=== PATIENT | male | born 1980 | race Caucasian/White ===

== ENCOUNTER 2016-05-22 21:09 | Emergency (ER) | payer OTHER ==
[~2016-05-22] VITALS: Ht 180.3 cm; Wt 142.0 kg
[~2016-05-22 21:09] MED LIST: AMOXICILLIN500 M1 PO
[2016-05-22 21:15] VITALS: BP 136/93
--- NOTE | 2016-05-22 21:30 | NUR ---
Patient ambulated to bed 03.
--- NOTE | 2016-05-22 21:37 | NUR ---
35 Y/O HERE C/O CONSTANT/ NONSTOP BLEEDING SINCE TOOTH EXTRACTION TODAY AT DENTIST OFFICE. BLEEDING PRESENT AT THE MOMENT. ER MD AWARED OF IT.
--- NOTE | 2016-05-22 21:40 | NUR ---
Dr. Villegas evaluating patient at bedside.
[2016-05-22] MEDS ORDERED: TRANEXAMIC ACID 1,000 MG in NACL 0.9% 50 ML IV STA (22:16)
[2016-05-22 22:27] VITALS: BP 129/89
--- NOTE | 2016-05-22 22:27 | NUR ---
Note wade in EDM - 05/22/16 at 2259 by GREGG 35 Y/O HERE C/O CONSTANT/ NONSTOP BLEEDING SINCE TOOTH EXTRACTION TODAY AT DENTIST OFFICE. BLEEDING PRESENT AT THE MOMENT. YUNG ALLRED AWARED OF IT.
--- NOTE | 2016-05-22 22:27 | NUR ---
Patient discharged with v/s stable. Written and verbal after care instructions given and explained. Patient verbalized understanding. Ambulatory with steady gait. All questions addressed prior to discharge. Advised to follow up with DENTIST TOMORROW OR RETURN TO ER IF BLEEDING CONTINUES. NO S/S OF BLEEDING OR DISTRESS ON D/C.
== END 2016-05-22 22:27 | disposition home or self-care (01) ==
LOC: MED 21:09
DX: K91.840 Postprocedural hemorrhage of a digestive system organ or structure following a digestive system procedure (principal); I10 Essential (primary) hypertension
CPT/HCPCS: 99283; J3490

== ENCOUNTER 2017-03-10 12:55 | Emergency (ER) | payer OTHER ==
[~2017-03-10] VITALS: Ht 182.9 cm; Wt 145.1 kg
[~2017-03-10 12:55] MED LIST changes: +AMOX500C25 PO; -AMOXICILLIN500 M1 PO
[2017-03-10 13:19] VITALS: BP 117/74
[2017-03-10] MEDS: HYDROcodone/APAP 5/325 MG 1 TAB TAB PO ONE (15:39)
[2017-03-10] MEDS: IBUPROFEN 600 MG TAB PO ONE (15:39)
[2017-03-10 16:53] VITALS: BP 132/79
== END 2017-03-10 16:53 | disposition home or self-care (01) ==
LOC: MED 12:55
DX: M54.5 Low back pain (principal); I10 Essential (primary) hypertension; V43.52XA Car driver injured in collision with other type car in traffic accident, initial encounter; Y93.I9 Activity, other involving external motion; Y92.488 Other paved roadways as the place of occurrence of the external cause; Y99.8 Other external cause status
CPT/HCPCS: 71020; 72040; 72110; 99284

== ENCOUNTER 2018-01-27 23:07 | Emergency (ER) | payer OTHER ==
[~2018-01-27] VITALS: Ht 180.3 cm; Wt 155.2 kg
[2018-01-27 23:10] VITALS: BP 150/97
[2018-01-28] MEDS: ACETAMINOPHEN EXTRA STRENGTH 500 MG TAB PO ONE (03:30)
[2018-01-28] MEDS: AMOXICILLIN 500 MG CAP PO ONE (03:31)
[2018-01-28] MEDS: predniSONE 20 MG TAB PO ONE (03:32)
[2018-01-28 03:34] LABS: BARBITURATE, URINE NEG. ng/ml (NEG <=200); BENZODIAZEPINE, URINE NEG. ng/mL (NEG <=200); CANNABINOID, URINE NEG. ng/mL (NEG <=50); COCAINE, URINE NEG. ng/mL (NEG <=300); OPIATE, URINE NEG. ng/mL (NEG <=2000); PHENCYCLIDINE SCREEN,URINE NEG. ng/mL (NEG <=25)
[2018-01-28 04:45] VITALS: BP 150/97
== END 2018-01-28 04:45 | disposition home or self-care (01) ==
LOC: MED 23:07
DX: R10.30 Lower abdominal pain, unspecified (principal); Z79.899 Other long term (current) drug therapy
CPT/HCPCS: 80305; 81002; 99284; J7512

== ENCOUNTER 2018-03-02 23:38 | Emergency (ER) | payer OTHER ==
[~2018-03-02] VITALS: Ht 180.3 cm; Wt 154.2 kg
[2018-03-02 23:48] VITALS: BP 168/122
--- NOTE | 2018-03-02 23:51 | NUR ---
PT TAKEN TO BED 2
--- NOTE | 2018-03-02 23:54 | NUR ---
37 Y/O M PRESENTS TO THE ED W/C/O SORE THROAT X 2 WEEKS. PT HAS BEEN SEEN FOR THIS ALREADY AND GIVEN ABX BUT IT IS NOT HELPING PER PT. PT DENIES N/V/D; SKIN IS INTACT, PINK/WARM/DRY; AAOX4, PERRL, WITH EVEN AND STEADY GAIT; LUNGS CLEAR BL, BREATHING UNLABORED; HR EVEN AND REGULAR, BL PERIPHERAL PULSES PRESENT; BS ACTIVE X4, NO TENDERNESS TO PALPATION, NO HEPATOSPLENOMEGALLY PALPATED, RESONANT TO PERCUSSION; PT DENIES ANY FEVER, CP, SOB, OR COUGH AT THIS TIME; PT STATES 7/10 PAIN AT THIS TIME; VSS; PATIENT POSITIONED FOR COMFORT; HOB ELEVATED; BEDRAILS UP X2; BED DOWN.
[2018-03-03] MEDS ORDERED: DEXAMETHASONE 10 MG/ML VIAL PO ONE (01:10)
[2018-03-03 01:35] VITALS: BP 137/96
--- NOTE | 2018-03-03 01:35 | NUR ---
Patient discharged with v/s stable. Written and verbal after care instructions given and explained. Patient alert, oriented and verbalized understanding of instructions. Ambulatory with steady gait. All questions addressed prior to discharge. ID band removed. Patient advised to follow up with PMD. Rx of Tylenol and Mylanta given. Patient educated on indication of medication including possible reaction and side effects. Opportunity to ask questions provided and answered.
== END 2018-03-03 01:35 | disposition home or self-care (01) ==
LOC: MED 23:38
DX: J02.9 Acute pharyngitis, unspecified (principal); I10 Essential (primary) hypertension; Z79.2 Long term (current) use of antibiotics
CPT/HCPCS: 36415; 87081; 87804; 99283; J1100

== ENCOUNTER 2018-04-25 05:45 | Emergency (ER) | payer OTHER ==
[~2018-04-25] VITALS: Ht 180.3 cm; Wt 147.0 kg
[2018-04-25 05:50] VITALS: BP 139/90
[2018-04-25] MEDS: NACL 0.9% 1,000 ML IV ONE (06:28)
[2018-04-25 06:37] LABS: BASOPHILS # (AUTO) 0.1 K/uL (0.00-0.22); BASOPHILS % (AUTO) 0.4 % (0.0-2.0); EOSINOPHILS # (AUTO) 0.2 K/uL (0-0.4); EOSINOPHILS % (AUTO) 1.2 % (0.0-4.0); HEMATOCRIT 51.6 % (36-52); HEMOGLOBIN 17.2 g/dL (12.0-18.0); LYMPHOCYTES # (AUTO) 2.5 K/uL (2.0-11.5); LYMPHOCYTES % (AUTO) 18.5 % (20.5-51.1); MEAN CORPUSCULAR HEMOGLOBIN 30 pg (27-31); MEAN CORPUSCULAR HGB CONC 33 g/dL (33-37); MEAN CORPUSCULAR VOLUME 90.2 fL (80-94); MONOCYTES # (AUTO) 0.9 K/uL (0.8-1.0); MONOCYTES % (AUTO) 6.4 % (1.7-9.3); NEUTROPHILS # (AUTO) 9.7 K/uL (1.8-7.7); NEUTROPHILS % (AUTO) 73.5 % (42.2-75.2); PLATELET COUNT (AUTO) 297 K/uL (140-450); RED BLOOD CELL COUNT(AUTO) 5.72 MIL/uL (4.20-6.10); RED CELL DISTRIBUTION WIDTH 13.2 % (11.6-13.7); WHITE BLOOD COUNT (AUTO) 13.3 K/uL (4.8-10.8)
[2018-04-25 06:42] LABS: APPEARANCE,URINE CLEAR (CLEAR); BILIRUBIN,URINE NEGATIVE (NEGATIVE); BLOOD, URINE NEGATIVE (NEGATIVE); COLOR,URINE YELLOW (YELLOW); LEUKOCYTE ESTERASE ,URINE NEGATIVE (NEGATIVE); NITRITE, URINE NEGATIVE (NEGATIVE); UGLUCOSE NEGATIVE (NEGATIVE)
[2018-04-25 07:05] LABS: RBC,URINE NONE SEEN /HPF (0-5); WBC,URINE 0-5 (RARE) /HPF (0-5)
[2018-04-25 07:07] LABS: ALBUMIN 4.1 g/dL (3.4-5.0); ANION GAP 13.8 (8-16); CARBON DIOXIDE 30.6 mmol/L (21-32); CREATININE 1.2 mg/dL (0.7-1.3); POTASSIUM 3.4 mmol/L (3.5-5.1); TOTAL BILIRUBIN 0.4 mg/dL (0.0-1.0)
[2018-04-25 07:52] VITALS: BP 139/90
== END 2018-04-25 07:52 | disposition home or self-care (01) ==
LOC: MED 05:45
DX: R42 Dizziness and giddiness (principal); R19.7 Diarrhea, unspecified; R50.9 Fever, unspecified; R11.0 Nausea; R05 Cough; I10 Essential (primary) hypertension; Z79.2 Long term (current) use of antibiotics
CPT/HCPCS: 36415; 71045; 80053; 81001; 85025; 87804; 96360; 99284; J7030

== ENCOUNTER 2018-05-19 19:45 | Emergency (ER) | payer OTHER ==
[~2018-05-19] VITALS: Ht 180.3 cm; Wt 149.7 kg
[2018-05-19 20:09] VITALS: BP 156/108
--- NOTE | 2018-05-19 20:10 | NUR ---
TO [facility] , A/W BED, AMBULATORY, ERMD NOTED
--- NOTE | 2018-05-19 20:16 | NUR ---
PATIENT AMBULATED TO ER BED 6.
--- NOTE | 2018-05-19 20:20 | NUR ---
37/M PRESENTS TO ED, C/O HIGH BLOOD PRESSURE (HIGHEST 178/114), X2 DAYS. BP 143/87, HR 91 AT THIS TIME. PT REPORTS HEADACHE AND RESOLVED STIFF NECK AFTER WAKING UP IN THE MORNING. PT DENIES CP, SOB, N/V. PT AOX4, GCS 15, RR EVEN AND UNLABORED. HX HTN, DM, ANXIETY RX NORVASC, METFORMIN, DEPAKOTE, LEXAPRO
--- NOTE | 2018-05-19 20:30 | NUR ---
EKG PERFORMED AT BEDSIDE
--- NOTE | 2018-05-19 21:15 | NUR ---
DR MINOR AT BEDSIDE
[2018-05-19 21:34] VITALS: BP 123/81
== END 2018-05-19 21:31 | disposition home or self-care (01) ==
LOC: MED 19:45
DX: I10 Essential (primary) hypertension (principal); M54.2 Cervicalgia; E11.9 Type 2 diabetes mellitus without complications; K21.9 Gastro-esophageal reflux disease without esophagitis; F41.9 Anxiety disorder, unspecified; Z79.2 Long term (current) use of antibiotics
CPT/HCPCS: 93005; 99283

== ENCOUNTER 2019-07-04 11:53 | Emergency (ER) | payer OTHER ==
[~2019-07-04] VITALS: Ht 180.3 cm; Wt 144.2 kg
[2019-07-04 12:07] VITALS: BP 130/99
--- NOTE | 2019-07-04 12:59 | NUR ---
pt ambulated to bed 07
--- NOTE | 2019-07-04 13:10 | NUR ---
c/o Generalized abdominal pain 7/10 in severity, more severe in RUQ. Denies N/V. Last BM today, small amount. admits to diarrhea yesterday x 2 episodes. abdomen soft, tender to touch in ruq. pt alert and awake. vs stable. ambulatory. pt reports taking prilosec with no relief Med hx: sleep apnea, DM, HTN, Anxiety and Depression
--- NOTE | 2019-07-04 13:41 | NUR ---
us at bedside
--- NOTE | 2019-07-04 14:00 | NUR ---
lab at bedside
[2019-07-04 14:17] LABS: BASOPHILS # (AUTO) 0.1 K/uL (0.00-0.22); BASOPHILS % (AUTO) 0.6 % (0.0-2.0); EOSINOPHILS % (AUTO) 0.3 % (0.0-4.0); HEMATOCRIT 50.1 % (36-52); HEMOGLOBIN 16.7 g/dL (12.0-18.0); LYMPHOCYTES # (AUTO) 1.7 K/uL (2.0-11.5); LYMPHOCYTES % (AUTO) 18.8 % (20.5-51.1); MEAN CORPUSCULAR HEMOGLOBIN 31 pg (27-31); MEAN CORPUSCULAR HGB CONC 33 g/dL (33-37); MEAN CORPUSCULAR VOLUME 91.7 fL (80-94); MONOCYTES # (AUTO) 0.6 K/uL (0.8-1.0); MONOCYTES % (AUTO) 6.2 % (1.7-9.3); NEUTROPHILS # (AUTO) 6.9 K/uL (1.8-7.7); NEUTROPHILS % (AUTO) 74.1 % (42.2-75.2); PLATELET COUNT (AUTO) 248 K/uL (140-450); RED BLOOD CELL COUNT(AUTO) 5.47 MIL/uL (4.20-6.10); RED CELL DISTRIBUTION WIDTH 12.8 % (11.6-13.7); WHITE BLOOD COUNT (AUTO) 9.3 K/uL (4.8-10.8)
[2019-07-04 14:38] LABS: ALBUMIN 4.1 g/dL (3.4-5.0); ANION GAP 9.8 (8-16); CARBON DIOXIDE 32.6 mmol/L (21-32); CREATININE 1.1 mg/dL (0.6-1.3); POTASSIUM 4.4 mmol/L (3.5-5.1); TOTAL BILIRUBIN 0.4 mg/dL (0.0-1.0)
[2019-07-04 15:27] VITALS: BP 131/77
--- NOTE | 2019-07-04 15:27 | NUR ---
Patient discharged with v/s stable. Written and verbal after care instructions given and explained. Patient alert, oriented and verbalized understanding of instructions. Ambulatory with steady gait. All questions addressed prior to discharge. ID band removed. Patient advised to follow up with PMD. Rx of [place], Zofran ODT given. Patient educated on indication of medication including possible reaction and side effects. Opportunity to ask questions provided and answered.
== END 2019-07-04 15:27 | disposition home or self-care (01) ==
LOC: MED 11:53
DX: K80.20 Calculus of gallbladder without cholecystitis without obstruction (principal); E11.9 Type 2 diabetes mellitus without complications; K21.9 Gastro-esophageal reflux disease without esophagitis; I10 Essential (primary) hypertension; F32.9 Major depressive disorder, single episode, unspecified; F41.9 Anxiety disorder, unspecified; Z79.899 Other long term (current) drug therapy; Z88.8 Allergy status to other drugs, medicaments and biological substances
CPT/HCPCS: 36415; 76705; 80053; 83690; 85025; 99284; Q0092

== ENCOUNTER 2020-06-20 20:57 | Emergency (ER) | payer OTHER ==
[~2020-06-20] VITALS: Ht 180.3 cm; Wt 146.1 kg
[2020-06-20 21:08] VITALS: BP 121/101
--- NOTE | 2020-06-20 21:13 | NUR ---
PT TO AWAIT IN LOBBY
--- NOTE | 2020-06-20 22:20 | NUR ---
[id number] Y MALE PRESENTS TO ED WITH LOWER ABDOMINAL PAIN, PT STATES FEELING NAUSEAOUS AND DIZZY. PT STATED STABBING PAIN OF 2/10 RIGHT NOW BUT 6/10 WHEN DEFECATING. LAST BOWEL MOVEMENT WAS 3 HOURS AGO. PT STATED THAT BOWEL HAS A "PHLEGM-LIKE/PASTY" WHITE DISCHARGE. PAST MED HX: HTN, DM, SWOLLEN GALLBLADDER, AND VERTIGO. ALLERGIES: MECLIZINE Addendum: 06/20/20 at 2238 by [email or web address] *39 Y MALE
--- NOTE | 2020-06-20 22:27 | NUR ---
PT TAKEN TO BED 5
--- NOTE | 2020-06-20 23:06 | NUR ---
Dr. Barraza examining patient.
--- NOTE | 2020-06-20 23:40 | NUR ---
PT TAKEN TO CT SCAN
--- NOTE | 2020-06-20 23:44 | NUR ---
PT RETURN FROM CT
--- NOTE | 2020-06-20 23:50 | NUR ---
LAB AT BEDSIDE
[2020-06-21 00:11] LABS: BASOPHILS % (AUTO) 0.4 % (0.0-2.0); EOSINOPHILS # (AUTO) 0.1 K/uL (0-0.4); HEMATOCRIT 47.9 % (36-52); HEMOGLOBIN 16.3 g/dL (12.0-18.0); LYMPHOCYTES # (AUTO) 2.4 K/uL (2.0-11.5); LYMPHOCYTES % (AUTO) 27.5 % (20.5-51.1); MEAN CORPUSCULAR HEMOGLOBIN 31 pg (27-31); MEAN CORPUSCULAR HGB CONC 34 g/dL (33-37); MEAN CORPUSCULAR VOLUME 89.9 fL (80-94); MONOCYTES # (AUTO) 0.7 K/uL (0.8-1.0); MONOCYTES % (AUTO) 8.6 % (1.7-9.3); NEUTROPHILS # (AUTO) 5.4 K/uL (1.8-7.7); NEUTROPHILS % (AUTO) 62.5 % (42.2-75.2); PLATELET COUNT (AUTO) 251 K/uL (140-450); RED BLOOD CELL COUNT(AUTO) 5.32 MIL/uL (4.20-6.10); RED CELL DISTRIBUTION WIDTH 13.1 % (11.6-13.7); WHITE BLOOD COUNT (AUTO) 8.7 K/uL (4.8-10.8)
[2020-06-21 00:22] LABS: ALBUMIN 3.8 g/dL (3.4-5.0); ANION GAP 10.7 (8-16); CARBON DIOXIDE 29.2 mmol/L (21-32); CREATININE 1.1 mg/dL (0.6-1.3); POTASSIUM 3.9 mmol/L (3.5-5.1); TOTAL BILIRUBIN 0.3 mg/dL (0.0-1.0)
[2020-06-21] MEDS ORDERED: DICY10SY13 PO (00:46)
[2020-06-21 01:00] VITALS: BP 121/101
--- NOTE | 2020-06-21 01:00 | NUR ---
Patient discharged with v/s stable. Written and verbal after care instructions given and explained. Patient alert, oriented and verbalized understanding of instructions. Ambulatory with steady gait. All questions addressed prior to discharge. ID band removed. Patient advised to follow up with PMD. Rx of DICYCLOMINE given. Patient educated on indication of medication including possible reaction and side effects. Opportunity to ask questions provided and answered.
== END 2020-06-21 01:00 | disposition home or self-care (01) ==
LOC: MED 20:57
DX: R10.9 Unspecified abdominal pain (principal); R11.0 Nausea; E11.9 Type 2 diabetes mellitus without complications; I10 Essential (primary) hypertension; K21.9 Gastro-esophageal reflux disease without esophagitis; Z88.8 Allergy status to other drugs, medicaments and biological substances; Z79.899 Other long term (current) drug therapy
CPT/HCPCS: 36415; 80053; 81002; 83690; 85025; 99284

== ENCOUNTER 2020-11-16 19:12 | Emergency (ER) | payer OTHER ==
[~2020-11-16] VITALS: Ht 180.3 cm; Wt 145.1 kg
[~2020-11-16 19:12] MED LIST changes: +DICY10SY13 PO
[2020-11-16 19:18] VITALS: BP 135/95
--- NOTE | 2020-11-16 19:29 | NUR ---
39 Y/O MALE C/O ABDOMINAL PAIN 06/19 DESCRIBES SHARP NON-RADIATING. PT STATES HE WAS RECENTLY AT CLINIC AND GAVE UA C/O ORANGE URINE. STATED "I WAS DIAGNOSED WITH GALLBLADDER PROBLEMS". DENIES N/V, DENIES FEVER/CHILLS. ABDOMEN IS LARGE, SOFT, NON-TENDER TO PALPATION, BOWEL SOUNDS ACTIVE X4, LAST BM 11/16/20. DENIES PMH ALLERGIES: MECLZINE
--- NOTE | 2020-11-16 19:29 | NUR ---
Note olivierone in EDM - 11/16/20 at 2106 by [email or web address] 39 Y/O FEMALE C/O ABDOMINAL PAIN 06/19 DESCRIBES SHARP NON-RADIATING. PT STATES HE WAS RECENTLY AT CLINIC AND GAVE UA C/O ORANGE URINE. STATED "I WAS DIAGNOSED WITH GALLBLADDER PROBLEMS". DENIES N/V, DENIES FEVER/CHILLS. ABDOMEN IS LARGE, SOFT, NON-TENDER TO PALPATION, BOWEL SOUNDS ACTIVE X4, LAST BM 11/16/20. DENIES PMH ALLERGIES: MECLZINE
--- NOTE | 2020-11-16 19:30 | NUR ---
AMBULATED TO BED 3
--- NOTE | 2020-11-16 19:38 | NUR ---
Dr. Camacho examining patient.
--- NOTE | 2020-11-16 19:50 | NUR ---
NAPRAPATH AT PT BEDSIDE.
--- NOTE | 2020-11-16 19:52 | NUR ---
PT TAKEN TO CT VIA W/C.
[2020-11-16 20:00] LABS: BASOPHILS # (AUTO) 0.3 K/uL (0.00-0.22); EOSINOPHILS # (AUTO) 0.1 K/uL (0-0.4); EOSINOPHILS % (AUTO) 2.2 % (0.0-4.0); HEMATOCRIT 47.6 % (36-52); HEMOGLOBIN 15.9 g/dL (12.0-18.0); LYMPHOCYTES # (AUTO) 0.9 K/uL (2.0-11.5); LYMPHOCYTES % (AUTO) 14.2 % (20.5-51.1); MEAN CORPUSCULAR HEMOGLOBIN 30 pg (27-31); MEAN CORPUSCULAR HGB CONC 33 g/dL (33-37); MEAN CORPUSCULAR VOLUME 90.2 fL (80-94); MONOCYTES # (AUTO) 0.5 K/uL (0.8-1.0); MONOCYTES % (AUTO) 7.6 % (1.7-9.3); NEUTROPHILS # (AUTO) 4.5 K/uL (1.8-7.7); PLATELET COUNT (AUTO) 219 K/uL (140-450); RED BLOOD CELL COUNT(AUTO) 5.28 MIL/uL (4.20-6.10); RED CELL DISTRIBUTION WIDTH 13.1 % (11.6-13.7); WHITE BLOOD COUNT (AUTO) 6.4 K/uL (4.8-10.8)
[2020-11-16 20:08] LABS: APPEARANCE,URINE CLEAR (CLEAR); BILIRUBIN,URINE 1+ (NEGATIVE); BLOOD, URINE NEGATIVE (NEGATIVE); COLOR,URINE DARK YELLOW (YELLOW); LEUKOCYTE ESTERASE ,URINE NEGATIVE (NEGATIVE); NITRITE, URINE NEGATIVE (NEGATIVE); UGLUCOSE NEGATIVE (NEGATIVE)
[2020-11-16 20:14] LABS: ALBUMIN 3.8 g/dL (3.4-5.0); ANION GAP 12.5 (8-16); CARBON DIOXIDE 28.6 mmol/L (21-32); CREATININE 1.1 mg/dL (0.6-1.3); POTASSIUM 3.1 mmol/L (3.5-5.1); TOTAL BILIRUBIN 0.5 mg/dL (0.0-1.0)
--- NOTE | 2020-11-16 21:11 | NUR ---
GAVE REPORT TO ISA TEJEDA. TRANSFER OF CARE AT THIS TIME.
--- NOTE | 2020-11-16 21:12 | NUR ---
Received report from ISA Mccain for continuity of care.
[2020-11-16] MEDS ORDERED: ONDA-24 SL (22:30)
[2020-11-16 22:40] VITALS: BP 134/84
--- NOTE | 2020-11-16 22:40 | NUR ---
Patient discharged with v/s stable. Written and verbal after care instructions given and explained. Patient alert, oriented and verbalized understanding of instructions. Ambulatory with steady gait. All questions addressed prior to discharge. ID band removed. Patient advised to follow up with PMD. Rx of ZOFRAN ODT given. Patient educated on indication of medication including possible reaction and side effects. Opportunity to ask questions provided and answered.
== END 2020-11-16 22:40 | disposition home or self-care (01) ==
LOC: MED 19:12
DX: R16.0 Hepatomegaly, not elsewhere classified (principal); R11.2 Nausea with vomiting, unspecified
CPT/HCPCS: 36415; 80053; 81003; 83690; 85025; 99284

== ENCOUNTER 2023-02-17 11:56 | Emergency (ER) | payer OTHER ==
[~2023-02-17] VITALS: Ht 180.3 cm; Wt 134.0 kg
[~2023-02-17 11:56] MED LIST changes: +ONDA-188 SL
[2023-02-17 12:14] VITALS: BP 110/77; PULSE 86; RESP 20; TEMP 97.7; O2SAT 95
[2023-02-17] MEDS ORDERED: NACL 0.9% 1,000 ML IV SCH (12:30)
[2023-02-17] MEDS ORDERED: KETOROLAC 30 MG/ML VIAL IVP ONE (12:30)
[2023-02-17 13:14] LABS: BASOPHILS % (AUTO) 0.6 % (0.0-2.0); EOSINOPHILS % (AUTO) 0.4 % (0.0-4.0); HEMATOCRIT 47.1 % (36-52); HEMOGLOBIN 16.2 g/dL (12.0-18.0); LYMPHOCYTES # (AUTO) 1.7 K/uL (2.0-11.5); LYMPHOCYTES % (AUTO) 20.8 % (20.5-51.1); MEAN CORPUSCULAR HEMOGLOBIN 31 pg (27-31); MEAN CORPUSCULAR HGB CONC 34 g/dL (33-37); MEAN CORPUSCULAR VOLUME 89.8 fL (80-94); MONOCYTES # (AUTO) 0.5 K/uL (0.8-1.0); MONOCYTES % (AUTO) 6.1 % (1.7-9.3); NEUTROPHILS # (AUTO) 5.8 K/uL (1.8-7.7); NEUTROPHILS % (AUTO) 72.1 % (42.2-75.2); PLATELET COUNT (AUTO) 270 K/uL (140-450); RED BLOOD CELL COUNT(AUTO) 5.24 MIL/uL (4.20-6.10); RED CELL DISTRIBUTION WIDTH 12.9 % (11.6-13.7); WHITE BLOOD COUNT (AUTO) 8.1 K/uL (4.8-10.8)
[2023-02-17 13:35] LABS: ALBUMIN 4.1 g/dL (3.4-5.0); ANION GAP 13.1 (8-16); CALCIUM 9.1 mg/dL (8.5-10.1); CARBON DIOXIDE 29.3 mmol/L (21-32); POTASSIUM 3.4 mmol/L (3.5-5.1); TOTAL BILIRUBIN 0.5 mg/dL (0.0-1.0); TOTAL PROTEIN, SERUM 7.6 g/dL (6.4-8.2)
[2023-02-17] MEDS ORDERED: NAPR-54 PO (13:58)
[2023-02-17 14:40] VITALS: BP 110/77; PULSE 86; RESP 20; TEMP 97.7; O2SAT 95
== END 2023-02-17 14:40 | disposition home or self-care (01) ==
LOC: MED 11:56
DX: K80.20 Calculus of gallbladder without cholecystitis without obstruction (principal); E11.9 Type 2 diabetes mellitus without complications; K21.9 Gastro-esophageal reflux disease without esophagitis; I10 Essential (primary) hypertension; Z79.899 Other long term (current) drug therapy; Z88.8 Allergy status to other drugs, medicaments and biological substances
CPT/HCPCS: 36415; 76705; 80053; 83690; 85025; 96361; 96374; 99285; J1885; Q0092

== ENCOUNTER 2023-12-15 03:10 | Emergency (ER) | payer OTHER ==
[~2023-12-15] VITALS: Ht 180.3 cm; Wt 115.7 kg
[~2023-12-15 03:10] MED LIST changes: +NAPR-337 PO
[2023-12-15 03:30] VITALS: BP 141/87; PULSE 94; RESP 18; TEMP 97.6; O2SAT 98
[2023-12-15 04:00] VITALS: O2SAT 99
--- NOTE | 2023-12-15 04:00 | NUR ---
42yo m bib self c.o epigastric pain x 2 months. pt states pain comes and goes. describes it as a "full feeling" in chest. states pain level 3/10. denies n/v/d. vss on bedside monitor. call ligth within reach. safety measures in place. allergies: meclizine pmhx: dm, htn
--- NOTE | 2023-12-15 04:00 | NUR ---
pt c/o epigastric pain that "radiates from cebter of chest into ribcage and upper back" pt reports pain occuring 3-4 days, pt reports pain 4/10 "feels dull". pt reports "he can feel his saliva going down his esophagus. pt reports taking omeprazole 20 mg with no aid in GERD like symptoms. allergy meclizine PMH DM HTN
[2023-12-15] MEDS: ALUMINUM HYD/MAG/SIMETHICONE 30 ML UDC PO ONE (04:49)
[2023-12-15 05:17] LABS: BASOPHILS # (AUTO) 0.1 K/uL (0.00-0.22); BASOPHILS % (AUTO) 0.5 % (0.0-2.0); EOSINOPHILS # (AUTO) 0.2 K/uL (0-0.4); EOSINOPHILS % (AUTO) 1.4 % (0.0-4.0); HEMATOCRIT 45.3 % (36-52); HEMOGLOBIN 15.4 g/dL (12.0-18.0); LYMPHOCYTES # (AUTO) 1.5 K/uL (2.0-11.5); LYMPHOCYTES % (AUTO) 12.2 % (20.5-51.1); MEAN CORPUSCULAR HEMOGLOBIN 30 pg (27-31); MEAN CORPUSCULAR HGB CONC 34 g/dL (33-37); MONOCYTES % (AUTO) 7.7 % (1.7-9.3); NEUTROPHILS # (AUTO) 9.8 K/uL (1.8-7.7); NEUTROPHILS % (AUTO) 78.2 % (42.2-75.2); PLATELET COUNT (AUTO) 236 K/uL (140-450); RED CELL DISTRIBUTION WIDTH 12.9 % (11.6-13.7); WHITE BLOOD COUNT (AUTO) 12.5 K/uL (4.8-10.8)
[2023-12-15 05:24] LABS: ANION GAP 13.2 (8-16); CALCIUM 9.4 mg/dL (8.5-10.1); CREATININE 1.1 mg/dL (0.6-1.3); POTASSIUM 3.2 mmol/L (3.5-5.1)
[2023-12-15] MEDS ORDERED: FAMO-92 PO (05:27)
[2023-12-15] MEDS ORDERED: SUCR1TAB56 PO (05:27)
[2023-12-15 05:34] LABS: ALANINE AMINOTRANSFERASE 41 U/L (12-78); ALBUMIN 3.8 g/dL (3.4-5.0); ALKALINE PHOSPHATASE 95 U/L (50-136); ASPARTATE AMINOTRANSFERASE 13 U/L (15-37); BILIRUBIN,DIRECT 0.1 mg/dL (0.0-0.3); LIPASE 30 U/L (16-77); TOTAL BILIRUBIN 0.4 mg/dL (0.0-1.0); TOTAL PROTEIN, SERUM 7.6 g/dL (6.4-8.2)
[2023-12-15] MEDS: POTASSIUM CHLORIDE 10 MEQ TABER PO ONE (05:49)
[2023-12-15 06:09] VITALS: BP 134/87; PULSE 87; RESP 16; TEMP 98.3; O2SAT 98
--- NOTE | 2023-12-15 06:09 | NUR ---
Patient discharged with v/s stable. Written and verbal after care instructions given and explained. Patient verbalized understanding. Ambulatory with steady gait. All questions addressed prior to discharge. Advised to follow up with PMD.
== END 2023-12-15 06:09 | disposition home or self-care (01) ==
LOC: MED 03:10
DX: K21.9 Gastro-esophageal reflux disease without esophagitis (principal); E11.9 Type 2 diabetes mellitus without complications; I10 Essential (primary) hypertension; Z79.899 Other long term (current) drug therapy; Z88.8 Allergy status to other drugs, medicaments and biological substances
CPT/HCPCS: 36415; 71045; 80048; 80076; 83690; 84484; 85025; 93005; 99285; Q0092